=== PATIENT | female | born 1945 | race Caucasian/White ===

== ENCOUNTER 2018-05-14 07:15 | Inpatient (IN) | payer OTHER ==
[2018-06-29] MEDS ORDERED: TRANEXAMIC ACID 1,000 MG in NS 100 ML IV ONE (09:00)
[2018-06-29] MEDS ORDERED: THROMBIN (BOVINE) 20,000 UNIT VIAL TP ONE (09:00)
[2018-06-29] MEDS ORDERED: CHLORHEXIDINE GLUC HIBICLENS 118 ML BTL TP ONE (09:00)
[2018-06-29] MEDS ORDERED: BACITRACIN 50,000 UNITS/10 ML SYR IRR ONE (09:01)
[2018-06-29] MEDS ORDERED: EPINEPHrine 1 MG/ML INJ ONE (09:01)
[2018-06-29] MEDS ORDERED: BUPIVACAINE 0.25% 30 ML SDV ONE (09:01)
[2018-06-29] MEDS ORDERED: GABAPENTIN 300 MG CAP PO ONE (09:09)
[2018-06-29] MEDS ORDERED: morphINE PF 0.2 MG in SYRINGE INTRATHECAL 1 SYR IT ONE (09:09)
[2018-06-29] MEDS ORDERED: ACETAMINOPHEN 500 MG TAB PO ONE (09:09)
[2018-06-29] MEDS ORDERED: ceFAZolin 2 GM/DEXTROSE 100 ML IV ONE (09:09)
[2018-06-29] MEDS ORDERED: fentaNYL 50 MCG in SYRINGE INTRATHECAL 1 SYR IT ONE (09:09)
[2018-06-29] MEDS ORDERED: LIDOCAINE 1% 2 ML INJ ID PRN (09:10)
[2018-06-29] MEDS ORDERED: LR 1,000 ML IV ONE (09:10)
[2018-06-29] MEDS ORDERED: MIDAZOLAM 2 MG/2 ML VIAL IVP ONE (10:34)
--- NOTE | 2018-06-29 10:35 | PDANEPAE ---
ANE History of Present Illness l4l5 spinal stenosis ANE Past Medical History - Cardiovascular History Hx Hypertension: No Hx Arrhythmias: No Hx Chest Pain: No Hx Coronary Artery / Peripheral Vascular Disease: No Hx CHF / Valvular Disease: No Hx Palpitations: No - Pulmonary History Hx COPD: No Hx Asthma/Reactive Airway Disease: Yes Hx Recent Upper Respiratory Infection: No Hx Oxygen in Use at Home: No Hx Sleep Apnea: No Sleep Apnea Screening Result - Last Documented: Negative Pulmonary History Comment: COLD WEATHER, EXERCISE INDUCED COUGH. ENVIRONMENTAL ALLERGIES - Neurologic History Hx Cerebrovascular Accident: No Hx Seizures: No Hx Dementia: No - Endocrine History Hx Diabetes: No - Renal History Hx Renal Disorders: No - Liver History Hx Hepatic Disorders: No - Neurological & Psychiatric Hx Hx Neurological and Psychiatric Disorders: No - Cancer History Hx Cancer: No Cancer History Comment: MELANOMA X3 REMOVED. BASAL CELL X2. SQUAMOUS CELL X1 - Congenital Disorder History Hx Congenital Disorders: No - GI History Hx Gastrointestinal Disorders: No Gastrointestinal History Comment: ONE EPISODE DIVERTICULITIS TXD W/ABX CAUSING C -DIFF INF 10 YRS AGO & RESOLVED - NO RECURRENCE - Other Health History Other Health History: NEG. [facility] INF POST OP THUMB R SURGERY - Chronic Pain History Chronic Pain: Yes (LOW BACK R SIDE & NUMBNESS FOOT) - Surgical History Prior Surgeries: YULI THUMBS. MELANOMA SCALP. HYSTERECTOMY. TONSILLECTOMY ANE Review of Systems Review of Systems: - Exercise capacity METS (RN): 5 METS ANE Patient History - Allergies Allergies/Adverse Reactions: Penicillins Allergy (Verified 06/04/18 11:20) Feverish, Red "Sand-paper" Rash Sulfa (Sulfonamide Antibiotics) Allergy (Verified 06/04/18 11:20) Hives vaccine adjuvant system, AS01B liposomal [From Shingrix (PF)] Allergy (Verified 06/04/18 11:20) Hives varicella-zoster virus glycoprotein E, recombinant [From Shingrix (PF)] Allergy (Verified 06/04/18 11:20) Hives - Home Medications Home Medications: Acyclovir [Zovirax 400 mg (*)] 400 mg PO HS 06/04/18 [Last Taken 06/28/18 20:30] Budesonide/Formoterol 80/4.5 [Symbicort 80-4.5 Mcg Inhaler] 2 puffs IH DAILY [Last Taken 06/29/18 07:00] Escitalopram Oxalate [Lexapro] 10 mg PO HS 06/04/18 [Last Taken 06/28/18 20:30] Fluticasone Nasal [Flonase Nasal [place] (RX)] 1 sprays NASAL DAILY 06/04/18 [ Last Taken 06/29/18 07:00] Rosuvastatin Calcium [Crestor 10mg (RX)] 10 mg PO HS 06/04/18 [Last Taken 20:30] buPROPion XL [Wellbutrin Xl] 150 mg PO DAILY 06/04/18 [Last Taken 06/29/18 07:00 ] ALPRAZolam [Xanax 0.5 MG (*)] 0.5 mg PO BID PRN 06/11/18 [Last Taken 06/29/18 07 :00] Aspirin [Aspirin 81mg (*)] 81 mg PO DAILY 06/11/18 [Last Taken 06/21/18] Xanax 06/29/18 [Last Taken 06/29/18 07:00] - Smoking Hx Smoking Status: Never smoked - Family Anes Hx Family Hx Anesthesia Complications: NEG ANE Labs/Vital Signs - Vital Signs Blood Pressure: 128/89 Heart Rate: 78 Respiratory Rate: 17 O2 Sat (%): 96 Height: 160.02 cm Weight: 62.142 kg ANE Physical Exam - Airway Neck exam: FROM Mallampati Score: Class 2 Mouth exam: normal dental/mouth exam - Pulmonary Pulmonary: no respiratory distress - Cardiovascular Cardiovascular: regular rate and rhythym - ASA Status ASA Status: II ANE Anesthesia Plan Anesthesia Plan: general endotracheal anesthesia
[2018-06-29] MEDS ORDERED: DEXAMETHASONE 4 MG/ML VIAL ONE (10:38)
[2018-06-29] MEDS ORDERED: ONDANSETRON 4 MG/2 ML VIAL ONE (10:38)
[2018-06-29] MEDS ORDERED: ROCURONIUM 50 MG/5 ML VIAL ONE (10:38)
[2018-06-29] MEDS ORDERED: HYDROmorphONE/DILAUDID 2 MG/ML INJ ONE (10:39)
[2018-06-29] MEDS ORDERED: PROPOFOL 200 MG/20 ML VIAL ONE (10:39)
[2018-06-29] MEDS ORDERED: fentaNYL 100 MCG/2 ML INJ ONE ×2 (10:39)
[2018-06-29] MEDS ORDERED: MIDAZOLAM 2 MG/2 ML VIAL ONE (10:50)
--- NOTE | 2018-06-29 11:22 | PDHPUP ---
History & Physical Update H&P update statement: This history and physical update is based on an assessment of the patient which was completed after admission or registration (within 24 hours), but prior to the surgery/procedure. H&P update: H&P reviewed & patient examined, no change in patient's condition since H&P completed
[2018-06-29] MEDS ORDERED: HYDROCODONE/APAP 5/325 TAB PO PRN (14:28)
[2018-06-29] MEDS ORDERED: ONDANSETRON 4 MG/2 ML VIAL IVP PRN ×2 (14:28→14:37)
[2018-06-29] MEDS ORDERED: HYDROmorphONE/DILAUDID 1 MG/ML INJ IVP PRN (14:28)
[2018-06-29] MEDS ORDERED: fentaNYL 100 MCG/2 ML INJ IVP PRN (14:28)
[2018-06-29] MEDS ORDERED: NALOXONE HCL 0.4 MG/ML INJ IVP PRN ×2 (14:28→14:37)
[2018-06-29] MEDS ORDERED: PROMETHAZINE HCL 25 MG/ML INJ IVP PRN (14:28)
[2018-06-29] MEDS ORDERED: ePHEDrine SULFATE 25 MG/5 ML SYR ONE (14:31)
[2018-06-29] MEDS ORDERED: PHENYLEPHRINE HCL 100 MCG/ML SYR ONE (14:31)
[2018-06-29] MEDS ORDERED: ALPRAZolam 0.5 MG TAB PO PRN (14:36)
[2018-06-29] MEDS ORDERED: morphINE PCA 30 MG/30 ML PCA IV PRN (14:37)
[2018-06-29] MEDS ORDERED: BISACODYL 10 MG SUPP PR PRN (14:37)
[2018-06-29] MEDS ORDERED: diphenhydrAMINE 25 MG CAP PO PRN (14:37)
[2018-06-29] MEDS ORDERED: ONDANSETRON DISINTEGRATING 4 MG TAB PO PRN (14:37)
[2018-06-29] MEDS ORDERED: MAGNESIUM HYDROXIDE 30 ML UDCUP PO PRN (14:37)
[2018-06-29] MEDS ORDERED: LACTULOSE 20 GM/30 ML UDCUP PO PRN (14:37)
--- NOTE | 2018-06-29 14:43 | SOAPPROG ---
SOAP Progress Note Assessment/Plan: Assessment: 72 yo F sp L4/5 TLIF Plan: stable to 3N LSO brace when out of bed PT/OT please call with neuro changes 06/29/18 14:42 Subjective: + back pain, no leg pain. Objective: Vital Signs Temp Pulse Resp BP Pulse Ox 36.5 C 78 17 128/89 H 96 06/29/18 10:40 06/29/18 10:40 06/29/18 10:40 06/29/18 10:40 06/29/18 10:40 somnolent, PERRL, no facial droop 5/5 except right Df 4/5 (same as pre-op) + light touch ICD10 Worksheet Patient Problems: Problems Problem Status Onset Fusion of spine of lumbar region Acute - ICD10 Problem Qualifiers (1) Fusion of spine of lumbar region
[2018-06-29] MEDS ORDERED: NS 1,000 ML IV SCH (14:45)
--- NOTE | 2018-06-29 14:45 | POSTANESTH ---
Post Anesthetic Evaluation Cardiovascular Status: Normal, Stable Respiratory Status: Normal, Stable Level of Consciousness/Mental Status: Can Participate in Eval Pain Control: Adequate, Prn Tx Ordered Nausea/Vomiting Control: Adequate, Prn Tx Ordered Complications Possibly Related to Anesthesia: None Noted
--- NOTE | 2018-06-29 15:24 | GOP ---
DATE OF OPERATION: 06/29/2018 SURGEON: Karl Dolan MD NEUROSURGEON: Karl Dolan MD. FOREST MANAGEMENT PROFESSOR: SACHA Carrillo. ANESTHESIA: General endotracheal. PREOPERATIVE DIAGNOSIS: L5-S1 disk degeneration and collapse with a right-sided foraminal disk herni ation, intractable low back pain, and right L5 distribution radicular symptoms, failed conservative c are. POSTOPERATIVE DIAGNOSIS: L5-S1 disk degeneration and collapse with a right-sided foraminal disk emeka iation, intractable low back pain, and right L5 distribution radicular symptoms, failed conservative care. PROCEDURE PERFORMED: Right L5-S1 far lateral transpedicular decompression with posterior nonsegmenta l (pedicle screw and axle device) fixation and posterolateral fusion, with local autograft and bone m orphogenic protein. L5-S1 posterior/transforaminal lumbar interbody fusion with 2 structural PEEK in terbody spacers, local autograft, and bone morphogenic protein. Use of intraoperative microscopy, fl uoroscopy, and computer volumetric stereotactic navigation with intraoperative neurophysiologic testi ng. Injection of intrathecal narcotic analgesics, and subcutaneous and intramuscular local anesthesi a for postoperative pain control. FINDINGS: ESTIMATED BLOOD LOSS: 50 cc. INDICATIONS: The patient is a 72-year-old woman with intractable low back pain and right lower extre mity radicular symptoms secondary to severe disk degeneration and collapse and a foraminal disk herni ation causing severe compression of the right L5 nerve root. She has failed extensive conservative c are, and presents now for surgical decompression and stabilization. Note that on the preoperative hi story and physical examination, this was referred to as the L4-5 level. The patient does have a charlton sitional segment, and the level we are talking about could be called L4-5 or L5-S1, but, based on dis cussion with the radiologist, surgery, and the intraoperative findings, I think this level is actuall y L5-S1 and not L4-5, which is what it was called in the preoperative note. What matters is that we are talking about exactly the same level, whether it is called L4-5 in the preoperative note or L5-S1 in the operative note; it is the same level. DESCRIPTION OF PROCEDURE: After informed consent was obtained, the patient was taken to the operatin g room and placed in the prone position on the Joe table. The lumbosacral area was prepped and d raped in a sterile fashion. After fluoroscopic localization of the correct levels, the subcutaneous and intramuscular tissues were infiltrated with local anesthesia. A small midline linear incision wa s then created over the L5-S1 spinous processes. This was carried down to the fascial layer, which w as incised using monopolar electrocautery, and carried in a subperiosteal plane along the spinous pro cesses and lamina bilaterally. Intraoperative fluoroscopy was again used to verify the correct level s, which were also confirmed by the radiologist, Dr. Ubaldo Richard, and we concluded that what we had initially called L4-5 preoperatively was actually L5-S1. After re-verification of the correct level s, the dissection was carried out over the facet joints, and a microscope was brought in. A far late ral transpedicular decompression was performed on the right side at the L5-S1 level with complete unr oofing of the facet joint and neuroforamen at L5 and S1. Note that the L5 root was very compressed b y quite a bit of facet hypertrophy and arthritic material, as well as a far lateral disk herniation t hat was suspected. After meticulously decompressing the L5 nerve root, the [employer] neuronavigational system was brought in. Using computer volumetric stereotactic navigation, pedicle screws were place d on the right at the L5 and S1 levels. Each individual screw was tested neurophysiologically with m onchasityar electrostimulation and interpretation of the potentials by the surgeon. A mary was then plac ed and secured under distraction, during which time a complete diskectomy was performed with preparat ion of the endplates and placement of two 10 mm structural PEEK interbody spacers, local autograft, a nd bone morphogenic protein for an L5-S1 posterior/transforaminal lumbar interbody fusion. The screw and mary system were then placed in a slight amount of compression in order to facilitate bony union and to minimize the potential for posterior graft migration. The remaining lamina and facet joint on the left were then extensively decorticated, and the residual local autograft along with the bone mo rphogenic protein were placed out laterally for a posterolateral fusion. An axle device was then marisa toribio in lieu of left-sided pedicle screws in order to maximize the bony surface area for the posterola teral fusion and to minimize the potential for root irritation or other issues from the pedicle screw placement. Following re-verification of good positioning of the screws, mary, interbody spacers, and interspinous process clamp, using biplanar fluoroscopy 200 mcg of Duramorph along with 50 mcg of fen tanyl were injected intrathecally. The subcutaneous and intramuscular tissues were infiltrated with local anesthesia. A drain was placed. The wound was closed in a layered fashion using interrupted V icryl sutures followed by Steri-Strips on the skin. COMPLICATIONS: None. DISPOSITION: The patient is currently in the process of being repositioned for extubation. /[id number]/MODL
[2018-06-29] MEDS ORDERED: DIAZEPAM 5 MG TAB PO PRN (16:41)
[2018-06-29] MEDS: POLYETHYLENE GLYCOL 3350 17 GM PKT PO SCH ×2 (18:05→22:50)
--- NOTE | 2018-06-29 18:24 | PDMN ---
Medical Necessity Medical necessity: [facility] IP only surgery; cpt 49172 Lumbar Fusion (L4/5 TLIF)
[2018-06-29] MEDS: buPROPion XL 150 MG TAB PO SCH (19:52)
[2018-06-29] MEDS: morphINE SR 15 MG TAB PO SCH (19:52)
[2018-06-29] MEDS: ACYCLOVIR 400 MG TAB PO SCH (19:52)
[2018-06-29] MEDS: FAMOTIDINE 20 MG TAB PO SCH (19:52)
[2018-06-29] MEDS: SENNOSIDES/DOCUSATE SODIUM TAB PO SCH (19:52)
[2018-06-29] MEDS: ROSUVASTATIN CALCIUM 10 MG TAB PO SCH (19:52)
[2018-06-29] MEDS: ESCITALOPRAM OXALATE 10 MG TAB PO SCH (19:52)
[2018-06-29] MEDS: ceFAZolin 2 GM/DEXTROSE 100 ML IV SCH (19:55)
[2018-06-30] MEDS: oxyCODONE IR 5 MG TAB PO PRN ×4 (02:07→17:40)
[2018-06-30] MEDS: ceFAZolin 2 GM/DEXTROSE 100 ML IV SCH (04:47)
[2018-06-30] MEDS: METHOCARBAMOL 750 MG TAB PO PRN ×3 (05:44→20:39)
[2018-06-30 05:58] LABS: PLATELET COUNT 230 10^3/uL (150-400)
--- NOTE | 2018-06-30 07:48 | NEUSURGPN ---
Assessment/Plan: A: 72 yo F sp L4/5 TLIF POD#1 P: PT/OT Pain management TEDs, SCDs, lovenox POD#1 Brace when OOB Post op xrays pending Ace out DESTINI drain 90 cc out - leave in for now Call NS with any issues D/w Dr Schulte Subjective: Pt resting in bed, states she is not having too much pain if she is still/doesn' t move much Objective: AAOx3 NAD VSS MAEx4 Motor 5/5 BLE +LT JPx1 Incision dressed Urinary Catheter in Place: No - Physician Discussed Patient with Dr.: Magdaleno Neurosurgery Physical Exam - Vitals, I&O, Labs I and O 06/29/18 06/30/18 07/01/18 05:59 05:59 05:59 Intake Total 2600 Output Total 590 Balance 2009 Weight 62.142 kg Intake: Oral (ml) 1300 IV Intake (ml) 1300 Output: Urine (ml) 500 Toilet 500 DESTINI Drain Output (ml) 90 Right Posterior Back 90 Joe Talbot Other: Intake Quantity Yes Sufficient Number of Emesis 1 Occurrences Vital Signs Temp Pulse Resp BP Pulse Ox 36.6 C 79 16 130/54 H 95 06/30/18 07:14 06/30/18 07:14 06/30/18 07:14 06/30/18 07:14 06/30/18 07:14 Laboratory Results 06/30/18 05:15 06/30/18 05:15 ICD10 Worksheet Patient Problems: Problems Problem Status Onset Fusion of spine of lumbar region Acute
[2018-06-30] MEDS: morphINE SR 15 MG TAB PO SCH ×2 (08:12→20:36)
[2018-06-30] MEDS: FAMOTIDINE 20 MG TAB PO SCH ×2 (08:13→20:36)
[2018-06-30] MEDS: ENOXAPARIN 40 MG/0.4 ML SYR SC SCH (08:14)
[2018-06-30] MEDS: SENNOSIDES/DOCUSATE SODIUM TAB PO SCH ×2 (08:14→20:34)
[2018-06-30] MEDS: POLYETHYLENE GLYCOL 3350 17 GM PKT PO SCH ×3 (08:15→20:32)
[2018-06-30] MEDS: BUDESONIDE/FORMOTEROL 80/4.5 60 PUFFS/MDI IH SCH (08:35)
[2018-06-30] MEDS ORDERED: BUDESONIDE/FORMOTEROL 80/4.5 60 PUFFS/MDI IH SCH (09:00)
[2018-06-30] MEDS: FLUTICASONE NASAL 120 SPRAYS/16 GM MDI EACHNARE SCH (12:46)
--- NOTE | 2018-06-30 14:37 | ASMTCMCOM ---
CM Note CM Note Notes: Met with patient and regarding d/c plan of care. Patient lives in [place] and plans on staying at the [facility] here in [place] upon discharge for a couple of days before traveling back home. They have purchased a walker and all other necessary DME, no needs identified at this time. Patient has been cleared by therapy. CM available should needs arise. Plan: Independent Date Signed: 06/30/2018 02:35 PM Electronically Signed By:Brissa Mensah RN
[2018-06-30] MEDS: ROSUVASTATIN CALCIUM 10 MG TAB PO SCH (20:34)
[2018-06-30] MEDS: ESCITALOPRAM OXALATE 10 MG TAB PO SCH (20:35)
[2018-06-30] MEDS: ACYCLOVIR 400 MG TAB PO SCH (20:35)
[2018-07-01] MEDS: oxyCODONE IR 5 MG TAB PO PRN ×2 (00:06→05:00)
[2018-07-01] MEDS: METHOCARBAMOL 750 MG TAB PO PRN (07:35)
--- NOTE | 2018-07-01 07:51 | SOAPPROG ---
SOAP Progress Note Assessment/Plan: Assessment: POD #2 sp L5/S1 TLIF doing well overall, needs better pain control on PO meds this AM before DC to local hotel Plan: DC today to hotel as long as she has good pain control Continue DESTINI drain LSO when OOB 07/01/18 07:49 Subjective: In bed, comfortable, but has pain with movement. No overnight issues denies new numbness, tingling or weakness Objective: Vital Signs Temp Pulse Resp BP Pulse Ox 36.6 C 77 16 121/67 H 93 07/01/18 04:00 07/01/18 00:00 07/01/18 00:00 07/01/18 00:00 07/01/18 00:00 Laboratory Results 06/30/18 05:15 06/30/18 05:15 06/30/18 07/01/18 07/02/18 05:59 05:59 05:59 Intake Total 2600 Output Total 590 750 Balance 2009 - Dressing: CDI DESTINI : 60 ml since 10 pm last night Neuro: DASILVA, sens +LT throughout Post op xrays show well postioned hardware. ICD10 Worksheet Patient Problems: Problems Problem Status Onset Fusion of spine of lumbar region Acute
[2018-07-01 08:22] VITALS: BP 124/65
[2018-07-01] MEDS: BUDESONIDE/FORMOTEROL 80/4.5 60 PUFFS/MDI IH SCH (09:21)
[2018-07-01] MEDS: SENNOSIDES/DOCUSATE SODIUM TAB PO SCH (10:15)
[2018-07-01] MEDS: ENOXAPARIN 40 MG/0.4 ML SYR SC SCH (10:16)
[2018-07-01] MEDS: POLYETHYLENE GLYCOL 3350 17 GM PKT PO SCH (10:16)
[2018-07-01] MEDS: morphINE SR 15 MG TAB PO SCH (10:16)
[2018-07-01] MEDS: FAMOTIDINE 20 MG TAB PO SCH (10:17)
[2018-07-01] MEDS: FLUTICASONE NASAL 120 SPRAYS/16 GM MDI EACHNARE SCH (10:17)
[2018-07-01] MEDS: buPROPion XL 150 MG TAB PO SCH (10:17)
--- NOTE | 2018-07-01 18:24 | ASMTLACE ---
LACE Length of stay for Answers: 3 days current admission Acuity / Level of Answers: Yes Care: Did the patient have an inpatient admission? Comorbidities - select Answers: Opioid dependence all that apply / Chronic pain # of Emergency department Answers: 0 visits in the last 6 months Score: 10 Date Signed: 07/01/2018 03:45 PM Electronically Signed By:EDSON Lunsford
--- NOTE | 2018-07-07 11:30 | GDS ---
ADMISSION DIAGNOSIS: L5-S1 degenerative joint disease, stenosis. DISCHARGE DIAGNOSIS: L5-S1 transforaminal lumbar interbody fusion. HISTORY/PHYSICAL: Please see admission history and physical. COURSE: The patient is a 72-year-old female who presented with low back pain and right lower extremi ty radicular symptoms. She was found to have severe degeneration and stenosis at the L5-S1 level. S he was taken to the operating room on 06/29/2018, where she underwent an L5-S1 transforaminal lumbar interbody fusion. There were no intraoperative complications, and she was admitted to the floor for observation. On the floor, she was tolerating a regular diet, and her pain was controlled with p.o. pain medications. She was discharged home in stable condition on 07/01/2018. The patient was discha rged with lumbar fusion instructions. I recommended she return for a neurosurgical followup appointm ent in 10-14 days. /[id number]/MODL
== END 2018-07-01 14:55 | disposition home or self-care (01) | DRG 455 ==
LOC: F3N 06-29 08:51
PROVIDERS: ATTEND Neurological Surgery
PROC: 3E0U0GB Introduction of Recombinant Bone Morphogenetic Protein into Joints, Open Approach (ICD-10-PCS; principal; 2018-06-29 10:45)
PROC: 4A1004G Monitoring of Central Nervous Electrical Activity, Intraoperative, Open Approach (ICD-10-PCS; principal; 2018-06-29 10:45)
PROC: 8E0WXBF Computer Assisted Procedure of Trunk Region, With Fluoroscopy (ICD-10-PCS; principal; 2018-06-29 10:45)
PROC: 0SG30AJ Fusion of Lumbosacral Joint with Interbody Fusion Device, Posterior Approach, Anterior Column, Open Approach (ICD-10-PCS; principal; 2018-06-29 10:45)
PROC: 0SG3071 Fusion of Lumbosacral Joint with Autologous Tissue Substitute, Posterior Approach, Posterior Column, Open Approach (ICD-10-PCS; principal; 2018-06-29 10:45)
PROC: 0ST40ZZ Resection of Lumbosacral Disc, Open Approach (ICD-10-PCS; principal; 2018-06-29 10:45)
PROC: 01NB0ZZ Release Lumbar Nerve, Open Approach (ICD-10-PCS; principal; 2018-06-29 10:45)
DX: M51.17 Intervertebral disc disorders with radiculopathy, lumbosacral region (principal); J45.909 Unspecified asthma, uncomplicated; Z23 Encounter for immunization
CPT/HCPCS: 97161-GP; 97165-GO; 97535-GO; C1713; G0008; G8978-GP-CI; G8979-GP-CI; G8980-GP-CI; G8987-GO-CI; G8988-GO-CI; G8989-GO-CI; J0171; J0690; J1100; J1170; J1650; J2250; J2274; J2370; J2405; J2704; J3010